=== PATIENT | female | born 1965 | race African-American/Black ===

== ENCOUNTER 2022-11-14 12:20 | Inpatient (IN) | payer SELFPAY ==
[2022-11-14 12:42] LABS: Absolute Lymphocytes (CBC) 2.2 K/uL (0.7-4.9); Hematocrit 35.2 % (36.0-45.0); Lymphocytes % 31.6 % (15.3-44.8); MCV 89.5 fL (80-100); MPV 7.7 fL (7.6-11.3); RBC Red Blood Cell Count 3.93 M/uL (3.86-4.86)
--- NOTE | 2022-11-14 12:42 | RAD REPORT ---
EXAM DESCRIPTION: Cm Single View11/14/2022 12:37 pm CLINICAL HISTORY: Chest pain COMPARISON: none FINDINGS: The lungs appear clear of acute infiltrate. The heart is normal size IMPRESSION: No acute abnormalities displayed
[2022-11-14 12:46] LABS: Protime INR 0.97
[2022-11-14 13:00] LABS: Albumin 3.8 g/dL (3.4-5.0); Bilirubin Direct 0.2 mg/dL (0-0.2); Bilirubin Indirect, Calculated 0.5 mg/dL (0.2-0.8); Bilirubin Total 0.7 mg/dL (0.2-1.0); Magnesium 2.4 mg/dL (1.6-2.4); Potassium 3.6 mEq/L (3.5-5.1); Protein, Total 7.5 g/dL (6.4-8.2)
[2022-11-14] MEDS ORDERED: NA CHLORIDE 0.9% 1,000 ML ONE (13:08)
--- NOTE | 2022-11-14 13:11 | RAD REPORT ---
EXAM DESCRIPTION: CT - Head Brain Wo Cont - 11/14/2022 12:59 pm CLINICAL HISTORY: Syncope COMPARISON: none TECHNIQUE: Computed axial tomography of the head was obtained. IV contrast was not requested. All CT scans are performed using dose optimization technique as appropriate and may include automated exposure control or mA/KV adjustment according to patient size. FINDINGS: An intracranial bleed is not seen The ventricles are normal in caliber No significant hypodense areas within the brain visualized No extra-axial fluid collection is noted. Fluid within the sinuses/ mastoids is not seen IMPRESSION: No acute intracranial abnormality is seen If patient's symptoms persist MRI of the brain would be recommended
[2022-11-14] MEDS ORDERED: HYDRALAZINE HCL 20 MG/ML VIAL ONE (13:29)
[2022-11-14 13:44] LABS: Specific Gravity 1.018 (1.005-1.030); Urine Bacteria <20 /HPF (<20); Urine Bilirubin NEGATIVE (Negative); Urine Blood Negative (Negative); Urine Clarity Extremely Turbid (Clear); Urine Color Light-Yellow (Yellow); Urine Glucose NEGATIVE (Negative); Urine Mucus Slight /HPF (None Seen); Urine Protein TRACE (Negative); Urine RBC <5 /HPF (None Seen); Urine Urobilinogen Normal (Normal)
[2022-11-14] MEDS ORDERED: cloNIDine HCL 0.1 MG TAB ONE (14:40)
--- NOTE | 2022-11-14 16:04 | RAD REPORT ---
EXAM DESCRIPTION: Sybil Angio11/14/2022 3:39 pm CLINICAL HISTORY: Syncope COMPARISON: None TECHNIQUE: 100 cc Isovue 370 was administered intravenously. 3D MIP reconstruction performed All CT scans are performed using dose optimization technique as appropriate and may include automated exposure control or mA/KV adjustment according to patient size. FINDINGS: Mild plaque within common carotid, internal carotid and external carotid arteries bilater ally Distal right vertebral artery hypoplastic. Dolichoectasia of the vertebrobasilar artery. No high-grade stenosis. No dissection seen IMPRESSION: Mild plaque within the carotid arteries NASCET criteria used. Mild 0-49% stenosis Moderate 50-69% stenosis Severe 70-99% stenosis
--- NOTE | 2022-11-14 16:09 | RAD REPORT ---
EXAM DESCRIPTION: CTHead angio11/14/2022 3:39 pm CLINICAL HISTORY: Syncope COMPARISON: None TECHNIQUE: 100 cc Isovue [address] angiogram of the head was obtained. 3D MIPS reconstruction performed. All CT scans are performed using dose optimization technique as appropriate and may include automated exposure control or mA/KV adjustment according to patient size. FINDINGS: The basilar, anterior cerebral, middle cerebral and posterior cerebral arteries do not dem onstrate a significant abnormality Mild calcified plaque distal internal carotid arteries An aneurysm is not seen A significant stenosis is not noted. No large vessel occlusion IMPRESSION: No significant abnormality is displayed
[2022-11-14] MEDS ORDERED: NA CHLORIDE 0.9% 50 ML ONE (16:42)
[2022-11-14] MEDS ORDERED: LABETALOL 20 MG/4ML SYRINGE IV ONE (16:42)
--- NOTE | 2022-11-14 17:35 | ER ---
Nurse's Notes [facility] Name: Phillip Robison Age: 57 yrs Sex: Female : 1965 Arrival Date: 11/14/2022 Time: 12:20 Bed 13 Private MD: Diagnosis: Hypertensive Urgency;Heat syncope Presentation: 11/14 12:21 Chief complaint: Patient states: she was at work, and got too hot. patient states she ap3 went inside and sat in a chair where she may have fainted. patient denies hitting her head, as she was seated in a chair. Coronavirus screen: At this time, the client does not indicate any symptoms associated with coronavirus-19. Ebola Screen: No symptoms or risks identified at this time. Initial Sepsis Screen: Does the patient meet any 2 criteria? No. Patient's initial sepsis screen is negative. Does the patient have a suspected source of infection? No. Patient's initial sepsis screen is negative. Risk Assessment: Do you want to hurt yourself or someone else? Patient reports no desire to harm self or others. Onset of symptoms was November 14, 2022. 12:21 Method Of Arrival: EMS: [facility] ap3 12:21 Acuity: RAE 2 ap3 Triage Assessment: 12:23 General: Appears in no apparent distress. Behavior is calm, cooperative, appropriate ap3 for age. Pain: Complains of pain in head. Neuro: Level of Consciousness is awake, alert, obeys commands, Oriented to person, place, time, situation, Appropriate for age Speech is normal, Reports headache weakness. Cardiovascular: Patient's skin is warm and dry. Respiratory: Airway is patent Respiratory effort is even, unlabored, Respiratory pattern is regular, symmetrical. Historical: - Allergies: 12:22 No Known Allergies; ap3 - Home Meds: 12:22 None [Active]; ap3 - PMHx: 12:22 Hypertensive disorder; ap3 - Immunization history:: Client reports having NOT received the Covid vaccine. - Social history:: Smoking status: Patient denies any tobacco usage or history of. Screenin:23 [facility] ED Fall Risk Assessment (Adult) History of falling in the last 3 months, ap3 including since admission No falls in past 3 months (0 pts) Confusion or Disorientation No (0 pts) Intoxicated or Sedated No (0 pts) Impaired Gait No (0 pts) Mobility Assist Device Used No (0 pt) Altered Elimination No (0 pt). Abuse screen: Denies threats or abuse. Nutritional screening: No deficits noted. Tuberculosis screening: No symptoms or risk factors identified. Assessment: 14:00 General: Appears in no apparent distress. comfortable, Behavior is calm, cooperative, eh3 appropriate for age. Pain: Denies pain. Neuro: Level of Consciousness is awake, alert, obeys commands, Oriented to person, place, time, situation. Cardiovascular: Capillary refill < 3 seconds Patient's skin is warm and dry. Rhythm is sinus rhythm. Respiratory: Airway is patent Respiratory effort is even, unlabored, Respiratory pattern is regular, symmetrical. GI: Abdomen is round non-distended. Derm: Skin is healthy with good turgor, Skin is pink, warm \T\ dry. Musculoskeletal: Circulation, motion, and sensation intact. 15:00 Reassessment: Patient appears in no apparent distress at this time. Patient and/or 3 family updated on plan of care and expected duration. Pain level reassessed. Patient is alert, oriented x 3, equal unlabored respirations, skin warm/dry/pink. 16:00 Reassessment: Patient appears in no apparent distress at this time. Patient and/or 3 family updated on plan of care and expected duration. Pain level reassessed. Patient is alert, oriented x 3, equal unlabored respirations, skin warm/dry/pink. 17:00 Reassessment: Patient appears in no apparent distress at this time. Patient and/or eh3 family updated on plan of care and expected duration. Pain level reassessed. Patient is alert, oriented x 3, equal unlabored respirations, skin warm/dry/pink. 18:00 Reassessment: Patient appears in no apparent distress at this time. Patient and/or eh3 family updated on plan of care and expected duration. Pain level reassessed. Patient is alert, oriented x 3, equal unlabored respirations, skin warm/dry/pink. 19:00 Reassessment: Patient appears in no apparent distress at this time. Patient and/or eh3 family updated on plan of care and expected duration. Pain level reassessed. Patient is alert, oriented x 3, equal unlabored respirations, skin warm/dry/pink. 20:00 Reassessment: Patient appears in no apparent distress at this time. Patient and/or eh3 family updated on plan of care and expected duration. Pain level reassessed. Patient is alert, oriented x 3, equal unlabored respirations, skin warm/dry/pink. 21:00 Reassessment: Patient appears in no apparent distress at this time. Patient and/or eh3 family updated on plan of care and expected duration. Pain level reassessed. Patient is alert, oriented x 3, equal unlabored respirations, skin warm/dry/pink. 21:08 Reassessment: Nurse to nurse report received by Rosy on 4th floor. [facility] Vital Signs: 12:21 BP 190 / 119; Pulse 89; Resp 18; Pulse Ox 100% on R/A; ap3 13:31 Pulse 83; Pulse Ox 100% on R/A; ap3 13:38 BP 197 / 118; Pulse 88; Pulse Ox 99% ; ap3 13:59 BP 210 / 128; ap3 14:15 BP 197 / 114; Pulse 93; Resp 20; Pulse Ox 100% on R/A; eh3 14:45 BP 210 / 123; Pulse 93; Resp 20; Pulse Ox 100% on R/A; eh3 15:25 BP 190 / 122; Pulse 97; Resp 18; Pulse Ox 98% on R/A; eh3 16:00 BP 177 / 116; Pulse 80; Resp 20; Pulse Ox 100% on R/A; eh3 16:30 BP 181 / 108; Pulse 87; Resp 18; Pulse Ox 99% on R/A; eh3 17:00 BP 166 / 108; Pulse 79; Resp 18; Pulse Ox 100% on R/A; eh3 17:30 BP 175 / 94; Pulse 87; Resp 18; Pulse Ox 98% on R/A; eh3 18:00 BP 174 / 108; Pulse 83; Resp 18; Pulse Ox 100% on R/A; eh3 18:30 BP 144 / 82; Pulse 87; Resp 18; Pulse Ox 100% on R/A; eh3 19:00 BP 149 / 91; Pulse 89; Resp 18; Pulse Ox 100% on R/A; eh3 19:30 BP 133 / 80; Pulse 90; Resp 18; Pulse Ox 100% on R/A; eh3 20:00 BP 125 / 73; Pulse 86; Resp 18; Pulse Ox 100% on R/A; eh3 20:30 BP 129 / 84; Pulse 86; Resp 18; Pulse Ox 99% on R/A; eh3 21:00 BP 144 / 95; Pulse 82; Resp 18; Pulse Ox 100% on R/A; eh3 21:30 BP 154 / 92; Pulse 80; Resp 18; Pulse Ox 100% on R/A; eh3 ED Course: 12:21 Patient arrived in ED. ap3 12:21 Jenni Lindo PA-C is PHCP. sb4 12:21 Tyron Daugherty MD is Attending Physician. sb4 12:22 Triage completed. ap3 12:24 Arm band placed on right wrist. ap3 12:24 Patient has correct armband on for positive identification. Bed in low position. Call ap3 light in reach. Side rails up X 1. woolen tester on. Pulse ox on. NIBP on. 12:34 Rosy Hernández, RENEE is Primary Nurse. ap3 12:34 Inserted saline lock: 20 gauge in right antecubital area, using aseptic technique. ap3 Blood collected. 12:39 Chest Single View XRAY In Process Unspecified. EDMS 13:00 CT Head Brain wo Cont In Process Unspecified. EDMS 13:30 Urine collected: clean catch specimen, sent to lab. ap3 14:00 Provided Education on: Use of call puente. eh3 15:[address] In Process Unspecified. EDMS 15:[address] In Process Unspecified. EDMS 17:33 Tramaine Dill MD is Hospitalizing Provider. sb4 21:11 No provider procedures requiring assistance completed. Patient admitted, IV remains in eh3 place. Administered Medications: 13:16 Drug: NS 0.9% IV 1000 ml Route: IV; Rate: 1 bolus; Site: right antecubital; ap3 14:30 Follow up: IV Status: Completed infusion; IV Intake: 1000ml eh3 13:38 Drug: hydrALAZINE IVP 5 mg Route: IVP; Site: right antecubital; ap3 14:14 Follow up: Response: Blood pressure is unchanged ap3 14:14 Drug: hydrALAZINE IVP 5 mg Route: IVP; Site: right antecubital; ap3 15:00 Follow up: Response: No adverse reaction eh3 14:35 Drug: cloNIDine PO 0.1 mg Route: PO; eh3 15:30 Follow up: Response: No adverse reaction 3 16:25 Drug: Labetalol IV 20 mg Route: IV; Rate: calculated rate; Infused Over: 2 mins; Site: [facility] right antecubital; 16:35 Follow up: Response: No adverse reaction; IV Status: Completed infusion; IV Intake: [id number] Medication: 21:11 VIS not applicable for this client. 3 Intake: 14:30 IV: 1000ml; Total: 1000ml. 3 16:35 IV: 50ml; Total: 1050ml. 3 Outcome: 17:34 Decision to Hospitalize by Provider. sb4 21:45 Admitted to Tele accompanied by tech, via wheelchair, room 408, Report called to [address] 21:45 Condition: stable 21:45 Instructed on the need for admit. 21:45 Patient left the ED. 3 Signatures: Dispatcher [employer] Rosy Luu RN RN ap3 Tara Mccarty RN RN eh3 Jenni Lindo PAZandra PAZandra 4
--- NOTE | 2022-11-14 17:35 | EDPHYS ---
Physician Documentation [facility] Name: Phillip Robison Age: 57 yrs Sex: Female : 1965 Arrival Date: 11/14/2022 Time: 12:20 Bed 13 Private MD: ED Physician Tyron Daugherty HPI: 11/14 12:24 This 57 yrs old Female presents to ER via EMS with complaints of heat exhaustion, sb4 syncope. 12:24 57-year-old female past medical history of hypertension not on medication presents to [facility] ED via EMS after a syncopal episode at work. 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 She states that she was coming inside into the air conditioning and does not remember what happened after that. Her coworkers say that she had a syncopal episode. She did not hit her head. When EMS arrived, they noted her blood pressure to be very elevated- 200s/120s. She denies any chest pain, shortness of breath, nausea, vomiting. Her only complaint is a slight headache. Historical: - Allergies: 12:22 No Known Allergies; ap3 - Home Meds: 12:22 None [Active]; ap3 - PMHx: 12:22 Hypertensive disorder; ap3 - Immunization history:: Client reports having NOT received the Covid vaccine. - Social history:: Smoking status: Patient denies any tobacco usage or history of. ROS: 12:24 Constitutional: Negative for fever, chills, and weight loss, Eyes: Negative for injury, sb4 pain, redness, and discharge, ENT: Negative for injury, pain, and discharge, Cardiovascular: Negative for chest pain, palpitations, and edema, Respiratory: Negative for shortness of breath, cough, wheezing, and pleuritic chest pain, Abdomen/GI: Negative for abdominal pain, nausea, vomiting, diarrhea, and constipation, Back: Negative for injury and pain, MS/Extremity: Negative for injury and deformity, Skin: Negative for injury, rash, and discoloration. 12:24 Neuro: Positive for headache, syncope, Negative for altered mental status, dizziness, gait disturbance, tremor, visual changes, weakness. 12:24 All other systems are negative. Exam: 12:24 Constitutional: This is a well developed, well nourished patient who is awake, alert, sb4 and in no acute distress. Head/Face: Normocephalic, atraumatic. Eyes: Extra-ocular motions intact. Periorbital areas with no swelling, redness, or edema. ENT: Mucous membranes moist. Cardiovascular: Regular rate and rhythm with a normal S1 and S2. Respiratory: Lungs have equal breath sounds bilaterally, clear to auscultation and percussion. No rales, rhonchi or wheezes noted. No increased work of breathing, no retractions or nasal flaring. Abdomen/GI: Soft, non-tender, no distension. Back: No spinal tenderness. No costovertebral tenderness. Full range of motion. Skin: Warm, dry with normal turgor. Normal color with no rashes, no lesions, and no evidence of cellulitis. MS/ Extremity: Pulses equal, no cyanosis. Neurovascular intact. Full, normal range of motion. Neuro: Awake and alert, GCS 15, oriented to person, place, time, and situation. Cranial nerves II-XII grossly intact. Motor strength 5/5 in all extremities. Sensory grossly intact. Cerebellar exam normal. Normal gait. Vital Signs: 12:21 BP 190 / 119; Pulse 89; Resp 18; Pulse Ox 100% on R/A; ap3 13:31 Pulse 83; Pulse Ox 100% on R/A; ap3 13:38 BP 197 / 118; Pulse 88; Pulse Ox 99% ; ap3 13:59 BP 210 / 128; ap3 14:15 BP 197 / 114; Pulse 93; Resp 20; Pulse Ox 100% on R/A; eh3 14:45 BP 210 / 123; Pulse 93; Resp 20; Pulse Ox 100% on R/A; eh3 15:25 BP 190 / 122; Pulse 97; Resp 18; Pulse Ox 98% on R/A; eh3 16:00 BP 177 / 116; Pulse 80; Resp 20; Pulse Ox 100% on R/A; eh3 16:30 BP 181 / 108; Pulse 87; Resp 18; Pulse Ox 99% on R/A; eh3 17:00 BP 166 / 108; Pulse 79; Resp 18; Pulse Ox 100% on R/A; eh3 17:30 BP 175 / 94; Pulse 87; Resp 18; Pulse Ox 98% on R/A; eh3 18:00 BP 174 / 108; Pulse 83; Resp 18; Pulse Ox 100% on R/A; eh3 18:30 BP 144 / 82; Pulse 87; Resp 18; Pulse Ox 100% on R/A; eh3 19:00 BP 149 / 91; Pulse 89; Resp 18; Pulse Ox 100% on R/A; eh3 19:30 BP 133 / 80; Pulse 90; Resp 18; Pulse Ox 100% on R/A; eh3 20:00 BP 125 / 73; Pulse 86; Resp 18; Pulse Ox 100% on R/A; eh3 20:30 BP 129 / 84; Pulse 86; Resp 18; Pulse Ox 99% on R/A; eh3 21:00 BP 144 / 95; Pulse 82; Resp 18; Pulse Ox 100% on R/A; eh3 21:30 BP 154 / 92; Pulse 80; Resp 18; Pulse Ox 100% on R/A; eh3 MDM: 12:21 Patient medically screened. sb4 12:24 Differential Diagnosis heat exhaustion, acute [place], rhabdomyolysis, CVA, hypertensive sb4 urgency, electrolyte abnormality . 17:33 Data reviewed: vital signs, nurses notes, EMS record, lab test result(s), EKG, sb4 radiologic studies, I have discussed the patient's presentation/case with the attending Emergency Department Physician; and as a result, I will admit patient. Consideration of Admission/Observation Patient was admitted/placed on observation. Historians other than the Patient: Daughter/Son: daughter. Counseling: I had a detailed discussion with the patient and/or guardian regarding: the historical points, exam findings, and any diagnostic results supporting the discharge/admit diagnosis, the presence of at least one elevated blood pressure reading (>120/80) during this emergency department visit, lab results, radiology results, the need for further work-up and treatment in the hospital. 11/14 12:22 Order name: Basic Metabolic Panel; Complete Time: 13:10 sb4 11/14 12:22 Order name: CBC with Diff; Complete Time: 12:44 sb4 11/14 12:22 Order name: Hepatic Function; Complete Time: 13:10 sb4 11/14 12:22 Order name: Magnesium; Complete Time: 13:10 sb4 11/14 12:22 Order name: Protime (+inr); Complete Time: 12:55 sb4 11/14 12:22 Order name: Ptt, Activated; Complete Time: 12:55 sb4 11/14 12:22 Order name: Troponin High Sensitivity; Complete Time: 13:10 sb4 11/14 12:22 Order name: Urinalysis w/ reflexes; Complete Time: 13:44 sb4 11/14 12:22 Order name: CT Head Brain wo Cont; Complete Time: 13:11 sb4 11/14 12:22 Order name: Chest Single View XRAY; Complete Time: 12:44 sb4 11/14 15:19 Order name: Head Angio CT; Complete Time: 16:10 sb4 11/14 15:19 Order name: Neck Angio CT; Complete Time: 16:09 sb4 11/14 12:22 Order name: EKG; Complete Time: 12:23 sb4 11/14 12:22 Order name: Cardiac monitoring; Complete Time: 12:34 sb4 11/14 12:22 Order name: EKG - Nurse/Tech; Complete Time: 12:57 sb4 11/14 12:22 Order name: IV Saline Lock; Complete Time: 12:34 sb4 11/14 12:22 Order name: Labs collected and sent; Complete Time: 12:34 sb4 11/14 12:22 Order name: O2 Per Protocol; Complete Time: 12:24 sb4 11/14 12:22 Order name: O2 Sat Monitoring; Complete Time: 12:24 sb4 EC:48 Rate is 82 beats/min. Rhythm is regular, Normal Sinus Rhythm. [place] interval is normal at sb4 140 msec. QRS interval is normal at 88 msec. QT interval is prolonged at 412 msec. No Q waves. T waves are Normal. No ST changes noted. Interpreted by me. Reviewed by me. Administered Medications: 13:16 Drug: NS 0.9% IV 1000 ml Route: IV; Rate: 1 bolus; Site: right antecubital; ap3 14:30 Follow up: IV Status: Completed infusion; IV Intake: 1000ml eh3 13:38 Drug: hydrALAZINE IVP 5 mg Route: IVP; Site: right antecubital; ap3 14:14 Follow up: Response: Blood pressure is unchanged ap3 14:14 Drug: hydrALAZINE IVP 5 mg Route: IVP; Site: right antecubital; ap3 15:00 Follow up: Response: No adverse reaction eh3 14:35 Drug: cloNIDine PO 0.1 mg Route: PO; eh3 15:30 Follow up: Response: No adverse reaction [facility] 16:25 Drug: Labetalol IV 20 mg Route: IV; Rate: calculated rate; Infused Over: 2 mins; Site: [facility] right antecubital; 16:35 Follow up: Response: No adverse reaction; IV Status: Completed infusion; IV Intake: [id number] Disposition Summary: 11/14/22 17:34 Hospitalization Ordered Hospitalization Status: Inpatient Admission sb4 Provider: Tramaine Dill sb4 [facility] sb4 Condition: Serious sb4 Problem: new sb4 Symptoms: are unchanged sb4 Bed/Room Type: Standard sb4 Room Assignment: 406(11/14/22 20:38) rv1 Diagnosis - Hypertensive Urgency sb4 - Heat syncope sb4 Discharge Instructions: - Discharge Summary Sheet sb4 - Hypertension, Adult sb4 - Chronic Kidney Disease, Adult, [id number] sb4 Forms: - Medication Reconciliation Form sb4 - SBAR form sb4 Signatures: Dispatcher [employer] Rosy Luu RN RN ap3 Tara Mccarty RN RN eh3 Jenni Lindo PA-C PAZandra sb4 Louisa Cuadra rv1 Corrections: (The following items were deleted from the chart) 20:38 17:34 sb4 rv1
--- NOTE | 2022-11-14 19:03 | P.HP ---
Certification for Inpatient Patient admitted to: Observation With expected LOS: <2 Midnights Patient will require the following post-hospital care: None Practitioner: I am a practitioner with admitting privileges, knowledge of patient current condition, hospital course, and medical plan of care. Services: Services provided to patient in accordance with Admission requirements found in Title 42 Section 412.3 of the Code of Federal Regulations Patient History Date of Service: 11/14/22 Reason for admission: Hypertensive urgency, syncope History of Present Illness: 57-year-old female with history of hypertension, noncompliance presents the emergency department with chief complaint of syncope, heat exhaustion. 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 She reports previous episodes when exposed to heat, exertion. Upon arrival to the emergency department patient's blood pressure was markedly elevated as high as 210/128, she was given multiple rounds of IV blood pressure medications but had remained resistant, ED provider wishes to admit under observation for hypertensive urgency, syncope. - Past Medical/Surgical History -: Hypertension -: Tubal ligation -: Right lumpectomy Psychosocial/ Personal History: Patient lives at home with family, works in [employer] - Family History Family History: Reviewed- Non-Contributory - Social History Smoking Status: Never smoker Alcohol use: No CD- Drugs: No Caffeine use: Yes Place of Residence: Home Review of Systems 10-point ROS is otherwise unremarkable Cardiovascular: Light Headedness, Other (Syncope) Physical Examination - Physical Exam General: Alert, In no apparent distress, Oriented x3, Obese HEENT: Atraumatic, PERRLA, Mucous membr. moist/pink, EOMI, Sclerae nonicteric Neck: Supple, 2+ carotid pulse no bruit, No LAD, Without JVD or thyroid abnormality Respiratory: Clear to auscultation bilaterally, Normal air movement Cardiovascular: Regular rate/rhythm, Normal S1 S2 Gastrointestinal: Normal bowel sounds, No tenderness Musculoskeletal: No tenderness Integumentary: No rashes Neurological: Normal gait, Normal speech, Normal strength at 5/5 x4 extr, Normal tone, Normal affect Lymphatics: No axilla or inguinal lymphadenopathy - Studies Laboratory Data (last 24 hrs) 11/14/22 11/14/22 11/14/22 12:29 12:29 12:29 WBC 7.10 Hgb 11.7 L Hct 35.2 L Plt Count 344 PT 10.7 INR 0.97 APTT 33.1 Sodium 137 Potassium 3.6 BUN 13 Creatinine 1.01 Glucose 87 Magnesium 2.4 Total Bilirubin 0.7 AST 21 ALT 24 Alkaline Phosphatase 61 Assessment and Plan - Plan Assessment: Heat exhaustion, syncope Hypertensive urgency Plan: Heat exhaustion, syncope Continue IV fluids, cardiac monitoring, trend troponins, check CPK level. Patient reports previous episodes in the past similar to this. Hypertensive urgency Has not been on blood pressure medicine for "many years". She was given multiple medications in the emergency department including IV hydralazine, IV labetalol, p.o. clonidine. Blood pressure has improved significantly at this point, will hold off on additional antihypertensive agents until blood pressure increases. We will start amlodipine in the morning. Recommend follow-up with PCP for further management of hypertension. DVT PPX: Lovenox Code status: Full Discharge Plan: Home Plan to discharge in: 24 Hours - Advance Directives Does patient have a Living Will: No Does patient have a Durable POA for Healthcare: No - Code Status/Comfort Care Code Status Assessed: Yes (Full code) Critical Care: No Time Spent Managing Pts Care (In Minutes): 55
[2022-11-14] MEDS ORDERED: ONDANSETRON 4 MG/2 ML VIAL IV PRN (21:51)
[2022-11-14 22:52] VITALS: BMI 31.0
[2022-11-14] MEDS: Ringers Lactate 1,000 ML IV SCH (22:56)
[2022-11-14] MEDS ORDERED: AMLODIPINE 5 MG TAB PO ONE (23:22)
[2022-11-14] MEDS ORDERED: lisinopriL 10 MG TAB PO SCH (23:30)
[2022-11-14] MEDS ORDERED: METOPROLOL TAR 50 MG TAB PO SCH (23:30)
[2022-11-15] MEDS: HYDRALAZINE HCL 20 MG/ML VIAL IV PRN ×2 (05:45→20:41)
[2022-11-15 06:32] LABS: Absolute Lymphocytes (CBC) 1.6 K/uL (0.7-4.9); Hematocrit 35.4 % (36.0-45.0); Lymphocytes % 28.5 % (15.3-44.8); MCV 89.3 fL (80-100); MPV 7.6 fL (7.6-11.3); RBC Red Blood Cell Count 3.96 M/uL (3.86-4.86)
[2022-11-15 06:54] LABS: Potassium 3.6 mEq/L (3.5-5.1); Thyroid Stimulating Hormone 1.13 uIU/mL (0.358-3.740); Troponin High Sensitivity 4.4 pg/mL (<58.9)
[2022-11-15] MEDS ORDERED: lisinopriL 20 MG TAB PO SCH (09:00)
[2022-11-15] MEDS ORDERED: POTASSIUM CL SA 10 MEQ TAB PO ONE (09:00)
[2022-11-15] MEDS: ENOXAPARIN 40 MG/0.4 ML SQ SCH (09:16)
[2022-11-15] MEDS: Ringers Lactate 1,000 ML IV SCH ×2 (09:16→17:30)
[2022-11-15] MEDS: AMLODIPINE 5 MG TAB PO SCH (09:17)
[2022-11-15] MEDS: hydroCHLOROthiazide 25 MG TAB PO SCH (09:18)
[2022-11-15 10:16] VITALS: O2SAT 99
--- NOTE | 2022-11-15 16:50 | P.PN ---
Subjective Date of Service: 11/15/22 Chief Complaint: Hypertensive urgency, syncope No acute events overnight. She reports that her symptoms have improved, but she has a mild generalized headache. She denies any chest pain, shortness of breath, palpitations, or visual disturbances. Review of Systems 10-point ROS is otherwise unremarkable Neurological: Other (headaches) Physical Examination - Vital Signs Temperature: 97.7 F Blood Pressure: 171/95 Pulse: 87 Respirations: 18 Pulse Ox (%): 100 - Physical Exam General: Alert, In no apparent distress, Oriented x3 HEENT: Atraumatic, Mucous membr. moist/pink, Sclerae nonicteric Neck: JVD not distended Respiratory: Clear to auscultation bilaterally, Normal air movement Cardiovascular: No edema, Regular rate/rhythm, Normal S1 S2, No rubs, No murmurs Gastrointestinal: Normal bowel sounds, Soft and benign, Non-distended, No tenderness, No rebound, No guarding Musculoskeletal: No clubbing Integumentary: No rashes Neurological: Normal speech, Normal strength at 5/5 x4 extr, Normal tone, Sensation intact, Cranial nerves 3-12 intact, Normal affect - Studies Laboratory Data (last 24 hrs) 11/15/22 11/15/22 06:01 06:01 WBC 5.50 Hgb 12.0 Hct 35.4 L Plt Count 315 Sodium 140 Potassium 3.6 BUN 8 Creatinine 0.86 Glucose 101 Assessment And Plan - Plan # Hypertensive Urgency Blood pressure was as high as 210/128, with no signs of end-organ damage. However, she reports mild headache this morning. - Not on any medication at home - Chest x-ray = "no acute abnormalities displayed" - Started amlodipine and hydrochlorothiazide - Goal to reduce blood pressure gradually (~ 20 % over the next 24 hours) - Can consider discharge when SBP < 170 - will require close outpatient follow-up # Syncope secondary to Heat Exhaustion - resolved - CT head = "no acute intracranial abnormality is seen" - CT head angiogram = "no significant abnormality is displayed" - CT neck angiogram = "mild plaque within the carotid arteries" Tramaine Dill M.D.
--- NOTE | 2022-11-15 17:37 | EKG ---
Test Date: 2022-11-14 Test Time: 12:46:50 Filler Shredder: KAILEY MEASUREMENT RESULTS: Intervals: Rate: 82 LA: 140 QRSD: 88 QT: 412 QTc: 481 [place]: P: 66 LA: 140 QRS: -1 T: 55 INTERPRETIVE STATEMENTS: Normal sinus rhythm Prolonged QT Abnormal ECG No previous ECG available for comparison Electronically Signed On 11-15-22 17:33:51 CDT by Maycol Berry
[2022-11-15] MEDS ORDERED: ACETAMINOPHEN 325 MG TABLET PO PRN (22:51)
[2022-11-16] MEDS: Ringers Lactate 1,000 ML IV SCH (03:51)
[2022-11-16] MEDS: AMLODIPINE 5 MG TAB PO SCH (08:21)
[2022-11-16] MEDS: hydroCHLOROthiazide 25 MG TAB PO SCH (08:21)
[2022-11-16 08:22] VITALS: BP 159/86
[2022-11-16] MEDS: ENOXAPARIN 40 MG/0.4 ML SQ SCH (08:22)
--- NOTE | 2022-11-16 08:31 | P.DS ---
Admission Date: 11/15/22 Discharge Date: 11/16/22 Disposition: ROUTINE DISCHARGE Discharge Condition: GOOD Reason for Admission: Hypertensive urgency, syncope Hospital Course: DIAGNOSES: # Hypertensive Urgency # Syncope secondary to Heat Exhaustion - resolved # Mild Carotid Artery Plaque HOSPITAL COURSE: Ms. Sylvia Robison is a pleasant 57 year old female with a past medical hist ory significant for hypertension who was admitted to the [facility] on 11/14/2022 for syncope. She was admitted to the Medicine service. Upon further evaluation, she reported having a brief episode of syncope after working outside in the hot temperature. She was thought to have had a syncopal episode due to heat exhaustion. She was treated in the hospital with IV fluids and had no recurrent episodes of syncope. She was noted to have significantly elevated blood pressures, with readings up to 210/128. Her chest x-ray revealed, "no acute abnormalities displayed." Her CT head revealed, "no acute intracranial abnormality is seen." Her CT head angiogram revealed, "no significant abnormality is displayed." Her CT neck angiogram revealed, "mild plaque within the carotid arteries." She was started on amlodipine and hydrochlorothiazide, with improvement in her blood pressure. She was advised to start these medications and maintain a blood pressure log. She was advised to bring this blood pressure log to her PCP for a follow-up visit. She verbalized understanding and agreed to make this appointment. On 11/16/2022, she was seen on morning rounds and deemed medically stable for discharge. She was discharged with instructions to schedule a follow-up appointment with her PCP. She was provided prescriptions for amlodipine and hydrochlorothiazide. She was given the opportunity to ask questions and reported no further questions. Furthermore, all questions were answered to the best of my ability. Today, I personally spent 25 minutes on her case, of which greater than 50% of the time was spent in patient education, counseling, and coordination of care as described above. Vital Signs/Physical Exam: Temp Pulse Resp BP Pulse Ox 99.1 F 83 16 159/86 H 98 11/16/22 04:00 11/16/22 08:21 11/16/22 04:00 11/16/22 08:21 11/16/22 04:00 General: Alert, In no apparent distress, Oriented x3 HEENT: Atraumatic, Mucous membr. moist/pink, Sclerae nonicteric Neck: JVD not distended Respiratory: Clear to auscultation bilaterally, Normal air movement Cardiovascular: No edema, Regular rate/rhythm, Normal S1 S2, No gallops, No rubs, No murmurs Gastrointestinal: Normal bowel sounds, Soft and benign, Non-distended, No tenderness, No rebound, No guarding Musculoskeletal: No clubbing Integumentary: No rashes Neurological: Normal speech, Normal affect Laboratory Data at Discharge: WBC 5.50 thou/uL (4.3-10.9) 11/15/22 06:01 Hgb 12.0 g/dL (12.0-15.0) 11/15/22 06:01 Hct 35.4 % (36.0-45.0) L 11/15/22 06:01 Plt Count 315 thou/uL (152-406) 11/15/22 06:01 PT 10.7 SECONDS (9.5-12.5) 11/14/22 12:29 INR 0.97 11/14/22 12:29 APTT 33.1 SECONDS (24.3-36.9) 11/14/22 12:29 Sodium 140 mEq/L (136-145) 11/15/22 06:01 Potassium 3.6 mEq/L (3.5-5.1) 11/15/22 06:01 BUN 8 mg/dL (7-18) 11/15/22 06:01 Creatinine 0.86 mg/dL (0.55-1.02) 11/15/22 06:01 Glucose 101 mg/dL (74-106) 11/15/22 06:01 Magnesium 2.4 mg/dL (1.6-2.4) 11/14/22 12:29 Total Bilirubin 0.7 mg/dL (0.2-1.0) 11/14/22 12:29 AST 21 U/L (15-37) 11/14/22 12:29 ALT 24 U/L (13-56) 11/14/22 12:29 Alkaline Phosphatase 61 U/L (45-117) 11/14/22 12:29 Home Medications: Amlodipine [Norvasc*] 5 mg PO DAILY #30 tab 11/16/22 hydroCHLOROthiazide [Hydrodiuril*] 25 mg PO DAILY #30 tab 11/16/22 New Medications: hydroCHLOROthiazide [Hydrodiuril*] 25 mg PO DAILY #30 tab Amlodipine [Norvasc*] 5 mg PO DAILY #30 tab Physician Discharge Instructions: 1. Please call and schedule a follow-up appointment with your PCP in 3-5 days - As we discussed, please check your blood pressure two times per day and keep it in a journal. Please bring this to your follow-up appointment. - Please have your PCP provide medication refills Diet: AHA Activity: Ad tisha Followup: NONE,NONE [Primary Care Provider] - 1 Week (Call for appointment.) Time spent managing pt's care (in minutes): 25
[2022-11-16 09:12] VITALS: TEMP 97.8
== END 2022-11-16 13:02 | disposition home or self-care (01) | DRG 923 ==
LOC: ER 12:20 → ERHOLD 18:27 → 4TH 21:35 → OBSVTOIN 11-15 11:50
PROVIDERS: ADMIT Internal Medicine; ATTEND Internal Medicine
DX: T67.5XXA Heat exhaustion, unspecified, initial encounter (principal); I16.0 Hypertensive urgency; Z91.199 Patient's noncompliance with other medical treatment and regimen due to unspecified reason; I65.23 Occlusion and stenosis of bilateral carotid arteries; Z28.310 Unvaccinated for COVID-19
CPT/HCPCS: 36415; 70450; 70496; 70498; 71045; 80048; 80076; 81001; 82550; 83735; 84439; 84443; 84484; 85025; 85610; 85730; 93005; 96361; 96374; 96375; 99285; J0360; J1650; J2405; J7030; J7120; Q9967